=== PATIENT | male | born 2000 | race African-American/Black ===

== ENCOUNTER 2023-02-17 12:05 | Emergency (ER) | payer BC, SELFPAY ==
[2023-02-17 12:14] VITALS: BP 132/84; PULSE 86; RESP 16; TEMP 37.1; O2SAT 98; BMI 22.6
--- NOTE | 2023-02-17 12:29 | CRLHL7_ITS ---
For Patients: As a result of the Cures Act, medical imaging exams and procedure reports are released immediately into your electronic medical record. You may view this report before your referring provider. If you have questions, please contact your health care provider. INDICATION: COUGH TECHNIQUE: Chest 1 view COMPARISON: None FINDINGS: Cardiovascular and mediastinum: Heart size and vasculature are normal in caliber and appearance. Lungs and pleural spaces: Lungs are clear. No sign of infiltrate or mass. No sign of pleural effusion. No pneumothorax. Bones and soft tissues: No significant findings. IMPRESSION: No acute findings. Dictated by Gurmeet Barrera MD @ 02/17/2023 12:51:37 PM (Electronically Signed)
--- NOTE | 2023-02-17 12:31 | ED.GENADULT ---
HPI - General Adult General Chief complaint: Fever Stated complaint: high temp, feels hot Time Seen by Provider: 02/17/23 12:06 History of Present Illness HPI narrative: Patient is a 23-year-old male who works at [employer], has had a fever for the last couple of days, he has had a cough productive of yellow-green sputum. He has no history of bronchospasm or asthma. No history of lung issues. He is on sertraline as only meds at home. He is generally quite healthy. He reports occasional fever and chills but took judy ibuprofen this morning his temperature is normal. He is not hypoxic with a 98% O2 sat. Related Data Home Medications Medication Instructions Recorded Confirmed sertraline .ROUTE 02/17/23 Allergies Allergy/AdvReac Type Severity Reaction Status Date / Time No Known Drug Allergies Allergy Verified 02/17/23 12:17 Review of Systems Status of ROS: Reports: 6 or more systems reviewed and unremarkable except as noted in History and below Exam Narrative: Exam Narrative: Objective: Vital signs unremarkable, O2 sat 90% on room air HEENT is unremarkable throat clear neck is supple chest is clear no rales or wheezing heart rhythm regular heart murmur extremities are no edema neurologic nonfocal Const: Vital Signs, click to edit/add: Vital Signs - 24 hr 02/17/23 12:14 Temperature 98.8 F Pulse Rate [Pulse Oximeter] 86 Respiratory Rate 16 Blood Pressure [Ri ght Upper Arm] 132/84 Pulse Oximetry 98 Oxygen Delivery Me thod Room Air Course Vital Signs Vital signs: Initial Vital Signs Temperature 98.8 F 02/17/23 12:14 Temperature Source Temporal Artery Scan 02/17/23 12:14 Pulse Rate 86 02/17/23 12:14 Respiratory Rate 16 02/17/23 12:14 Blood Pressure 132/84 02/17/23 12:14 Blood Pressure Mean 100 02/17/23 12:14 Pulse Oximetry 98 02/17/23 12:14 Oxygen Delivery Method Room Air 02/17/23 12:14 Vital Signs Temperature 98.8 F 02/17/23 12:14 Pulse Rate 86 02/17/23 12:14 Respiratory Rate 16 02/17/23 12:14 Blood Pressure 132/84 02/17/23 12:14 Pulse Oximetry 98 02/17/23 12:14 Oxygen Delivery Method Room Air 02/17/23 12:14 Temperature 98.8 F 02/17/23 12:14 Pulse Rate 86 02/17/23 12:14 Respiratory Rate 16 02/17/23 12:14 Blood Pressure 132/84 02/17/23 12:14 Pulse Oximetry 98 02/17/23 12:14 Oxygen Delivery Method Room Air 02/17/23 12:14 Medical Decision Making MDM Narrative Medical decision making narrative: 23-year-old male with a history of fever he reports up to 105 this morning. He is afebrile now and appears clinically nontoxic. I think could be appropriate to get a strep test, COVID/influenza, and because of his fever would get a chest x-ray he has had a cough as well. If x-ray is negative we can: Back with the results of the labs, off work today and tomorrow and light activity. Follow up with primary care in 2-3 days Addendum: Patient's chest x-ray is negative, strep and COVID pending. We will call him back with the results of the test, light activity, fluids, Tylenol, off work for couple of days and return to primary care if problems or concerns, return to ED sooner for worsening. Lab Data Labs: Lab Results 02/17/23 Range/Units 12:22 SARS-CoV-2 (PCR) Negative SARS-CoV-2 (Negative) Influenza Type A (PCR) Negative PCR FLU A (Negative) Influenza Type B (PCR) Negative PCR FLU B (Negative) RSV (PCR) Negative PCR RSV (Negative) Group A Strep DNA NOT DETECTED (Not Detectd) Discharge Plan Discharge Clinical Impression: Fever, Cough Patient Disposition: Home, Self-Care Condition: Stable Additional Instructions: Rest, light activity, off work for 2 days, we will call back with the results that are pending. Return to see her primary care doctor in 2-3 days, return to ED sooner problems or concerns. Activity Level: Light activity Discharge Diet: Regular Prescriptions: No Action sertraline .ROUTE Stand Alone Forms: [employer] Info Instructions
[2023-02-17 13:24] LABS: PCR FLU A Negative PCR FLU A (Negative); PCR FLU B Negative PCR FLU B (Negative); PCR RSV Negative PCR RSV (Negative)
[2023-02-17 13:27] LABS: SARS PCR* Negative SARS-CoV-2 (Negative); Strep A DNA Probe* NOT DETECTED (Not Detectd)
--- NOTE | 2023-02-17 13:52 | ED.NURSE ---
Attempted to call patient with negative result, phone number did not go through. Called patient's listed contact and mother and gave verbal negative results on swabs. She states she will contact patient with results.
== END 2023-02-17 12:57 | disposition home or self-care (01) ==
PROVIDERS: Emergency Provider Family Medicine
DX: Z20.822 Contact with and (suspected) exposure to COVID-19 (principal); R50.9 Fever, unspecified; R05.9 Cough, unspecified
CPT/HCPCS: 71045; 87631; 87651; 99283; 99284

== ENCOUNTER 2023-08-10 13:18 | Emergency (ER) | payer BC, SELFPAY ==
[2023-08-10 13:36] VITALS: BP 145/94; PULSE 79; RESP 16; TEMP 37.6; O2SAT 100; BMI 25.1
--- NOTE | 2023-08-10 13:49 | ED_ITS ---
HPI - Animal Bite General Time Seen by Provider: 13:49 Date Seen: 08/10/23 Chief Complaint: Animal Bite Stated Complaint: Attacked by dog, face lacs Time Seen by Provider: 08/10/23 13:45 Source: patient Mode of arrival: ambulatory Limitations: no limitations History of Present Illness HPI narrative: Patient presents to the ED after being attacked by his labrapit dog this afternoon. Patient states he was lying on his bed playing with his dog when his dog bit his face. He now has 4 lacerations to the right side of his face. There is a 1 cm horizontal laceration, possibly abrasion, underneath his lower right eyelid. There is a 2 cm linear vertical laceration to the middle of his right cheek. There is a 5 mm laceration near the right oral commissure. There is also a 2 mm laceration over the right vermilion border. Denies any numbness or tingling. No vision changes. Patient's pain is pretty well controlled at this point in time. Patient states his dog is up-to-date on all of his vaccinations and immunizations. Last tetanus was 11/27/2022. Related Data Previous Rx's Medication Instructions Recorded amoxicillin 875 mg-potassium 1 tab PO BID #10 tabs 08/10/23 clavulanate 125 mg tablet Allergies Allergy/AdvReac Type Severity Reaction Status Date / Time No Known Drug Allergies Allergy Verified 02/17/23 12:17 Review of Systems Const: Denies: fever or chills Eyes: Denies: change in vision, blurry vision, light sensitivity, eye discomfort or eye discharge ENMT: Reports: mouth pain; Denies: swelling of lips/tongue GI: Denies: nausea Neuro: Reports: other (Denies any facial numbness) Exam Narrative: Exam Narrative: General: Healthy-appearing, well-nourished, in no apparent distress. HENMT: Normocephalic, traumatic facial injury secondary to dog bite. There is a 1 cm horizontal abrasion appreciated underneath the right lower eyelid. There is a 2 cm vertical linear laceration on the mid right cheek. Is there is a 5 mm horizontal lack noted on the right oral commissure. There is a 2 mm lack on the right upper vermilion border. No oral lesions. Moist mucous membranes. No immediate swelling noted. Neck: Full range of motion. Atraumatic with no abrasions or lacerations. Supple, no lymphadenopathy. Eye: PERRL. EOMs intact bilterally. Conjunctiva normal. Neuro: No focal motor or sensory deficits. A&Ox3. CN II-XII intact. Const: Vital Signs, click to edit/add: Vital Signs - 24 hr 08/10/23 13:36 Temperature 99.7 F H Pulse Rate [Pulse Oximeter] 79 Respiratory Rate 16 Blood Pressure [Ri t Upper Arm] 145/94 H Pulse Oximetry 100 Oxygen Delivery Me thod Room Air Eye: Direct Ophthalmoscopy: no photophobia Course Vital Signs Vital signs: Initial Vital Signs Temperature 99.7 F H 08/10/23 13:36 Temperature Source Temporal Artery Scan 08/10/23 13:36 Pulse Rate 79 08/10/23 13:36 Respiratory Rate 16 08/10/23 13:36 Blood Pressure 145/94 H 08/10/23 13:36 Blood Pressure Mean 111 H 08/10/23 13:36 Blood Pressure Position Sitting 08/10/23 13:36 Pulse Oximetry 100 08/10/23 13:36 Oxygen Delivery Method Room Air 08/10/23 13:36 Vital Signs Temperature 99.7 F H 08/10/23 13:36 Pulse Rate 79 08/10/23 13:36 Respiratory Rate 16 08/10/23 13:36 Blood Pressure 145/94 H 08/10/23 13:36 Pulse Oximetry 100 08/10/23 13:36 Oxygen Delivery Method Room Air 08/10/23 13:36 Temperature 99.7 F H 08/10/23 13:36 Pulse Rate 79 08/10/23 13:36 Respiratory Rate 16 08/10/23 13:36 Blood Pressure 145/94 H 08/10/23 13:36 Pulse Oximetry 100 08/10/23 13:36 Oxygen Delivery Method Room Air 08/10/23 13:36 MDM - Animal Bite MDM Narrative Medical decision making narrative: Patient is a pleasant 22-year-old male who presents this afternoon after being attacked by his labpit dog. The dog is up-to-date on all of its immunizations, including his rabies shot. Patient's last tetanus was 11/27/2022. On exam, patient is in no acute distress, but is mildly hypertensive with a blood pressure 145/94. All other vital signs are stable. No focal motor or sensory deficits noted. He sustained 4 lacerations to the right side of his face. The wounds were irrigated with 2 rounds of 500 mL of normal saline. 4 mL total of 1% lidocaine with epi was used to anesthetize. There is one 1 cm abrasion noted under his right lower eyelid that I believe will close and heal well on its own. There is a 2 cm vertical linear laceration on the right mid cheek that was closed with 4 simple interrupted sutures. There was a 5 mm horizontal lack sustained to the right oral commissure that was closed with 3 simple interrupted sutures. There was one 2 mm black on the right upper vermilion border that was closed with 1 simple suture. Ethilon was used for all the sutures placed. Patient will return in 5-7 days to have the suture removed. Will treat patient with a course of Augmentin for 5 days. Patient tolerated the procedure well. Return precautions advised. All questions answered. Patient understands and is in agreement. Differential Diagnosis Differential diagnosis: Likely bite by animal and dog bite Medical Records Attestation: I reviewed the patient's medical records. Discharge Plan Discharge Clinical Impression: Dog bite Patient Disposition: Home, Self-Care Condition: Improved Additional Instructions: Take medication as prescribed. Follow up with urgent care or clinic for suture removal in 5-7 days. Activity Level: No Restrictions Discharge Diet: Regular Prescriptions: New amoxicillin-pot clavulanate 875-125 mg tablet 1 tab PO BID Qty: 10 0RF Follow Up/Referrals: Provider,Not a Local [Primary Care Provider] - Stand Alone Forms: [employer] Info Instructions
--- NOTE | 2023-08-10 13:50 | ED.NURSE ---
called PD to report dog bite, they will send an officer here.
== END 2023-08-10 15:56 | disposition home or self-care (01) ==
PROVIDERS: Emergency Provider Emergency Medicine Emergency Medical Services
DX: S01.111A Laceration without foreign body of right eyelid and periocular area, initial encounter (principal); S01.511A Laceration without foreign body of lip, initial encounter; S01.411A Laceration without foreign body of right cheek and temporomandibular area, initial encounter; W54.0XXA Bitten by dog, initial encounter
CPT/HCPCS: 12013; 99283; 99284

== ENCOUNTER 2023-08-13 09:57 | Emergency (ER) | payer BC, SELFPAY ==
[2023-08-13 10:14] VITALS: BP 112/73; PULSE 72; RESP 14; TEMP 37.2; O2SAT 98; BMI 24.4
--- NOTE | 2023-08-13 11:13 | ED.GENADULT ---
HPI - General Adult General Time Seen by Provider: 11:14 Date Seen: 08/13/23 Chief complaint: Laceration/Wound Stated complaint: Possible infection around face lacs Time Seen by Provider: 08/13/23 10:59 Source: patient and family (significant other) Mode of arrival: ambulatory Limitations: no limitations History of Present Illness HPI narrative: 22-year-old male who presents today for wound check. He had a dog bite in his face 3 days ago, this was sutured, patient is on antibiotics. Noted some clear yellow drainage today and so came to the emergency department. Pain and swelling are improving. No fevers. Related Data Previous Rx's Medication Instructions Recorded amoxicillin 875 mg-potassium 1 tab PO BID #10 tabs 08/10/23 clavulanate 125 mg tablet Allergies Allergy/AdvReac Type Severity Reaction Status Date / Time No Known Drug Allergies Allergy Verified 08/13/23 10:14 Exam Narrative: Exam Narrative: General: well nourished , NAD Head: Atraumatic and normocephalic ENT: External ears and external nose are normal Eyes: Conjunctiva clear, pupils are equal reactive, external ocular motions are intact Neck: Full spontaneous range of motion of the neck Lungs: No respiratory distress Musculoskeletal: No tenderness or deformity Neurologic: No gross focal neurologic deficits Skin: Laceration of the right zygomatic arch with sutures in place, no drainage, no underlying flocculence, no redness or warmth. Open wound at the corner of the right lip without surrounding erythema or drainage. Small laceration just under the right eye clean and dry with no erythema or discharge Psych: Mood and affect are appropriate Const: Vital Signs, click to edit/add: Vital Signs - 24 hr 08/13/23 10:14 Temperature 99.0 F Pulse Rate [Pulse Oximeter] 72 Respiratory Rate 14 Blood Pressure [Ri ght Upper Arm] 112/73 Pulse Oximetry 98 Oxygen Delivery Me thod Room Air Course Course ED Course: Patient presents today for wound check after dog bite a couple of days ago with sutured wounds. On exam, the wounds all look clean with no erythema, induration, tenderness, or warmth to suggest cellulitis. Patient describes clear yellow drainage it does not sound like pus and none of the wounds appear to be clear infected. Continue antibiotics, sutures out next week as previously recommended. Vital Signs Vital signs: Initial Vital Signs Temperature 99.0 F 08/13/23 10:14 Temperature Source Temporal Artery Scan 08/13/23 10:14 Pulse Rate 72 08/13/23 10:14 Pulse Rhythm Regular 08/13/23 10:14 Respiratory Rate 14 08/13/23 10:14 Blood Pressure 112/73 08/13/23 10:14 Blood Pressure Mean 86 08/13/23 10:14 Blood Pressure Position Sitting 08/13/23 10:14 Pulse Oximetry 98 08/13/23 10:14 Oxygen Delivery Method Room Air 08/13/23 10:14 Vital Signs Temperature 99.0 F 08/13/23 10:14 Pulse Rate 72 08/13/23 10:14 Respiratory Rate 14 08/13/23 10:14 Blood Pressure 112/73 08/13/23 10:14 Pulse Oximetry 98 08/13/23 10:14 Oxygen Delivery Method Room Air 08/13/23 10:14 Temperature 99.0 F 08/13/23 10:14 Pulse Rate 72 08/13/23 10:14 Respiratory Rate 14 08/13/23 10:14 Blood Pressure 112/73 08/13/23 10:14 Pulse Oximetry 98 08/13/23 10:14 Oxygen Delivery Method Room Air 08/13/23 10:14 Discharge Plan Discharge Clinical Impression: Encounter for wound re-check Patient Disposition: Home, Self-Care Condition: Stable Instructions: Care For Your Stitches (DC) Additional Instructions: Return to have sutures removed as previously recommended Activity Level: No Restrictions Discharge Diet: Regular Prescriptions: No Action amoxicillin-pot clavulanate 875-125 mg tablet 1 tab PO BID Qty: 10 0RF Follow Up/Referrals: Provider,Not a Local [Primary Care Provider] - Stand Alone Forms: [employer] Info Instructions
[2023-08-13 11:25] VITALS: BP 112/73; PULSE 72; RESP 14; TEMP 37.2
== END 2023-08-13 11:26 | disposition home or self-care (01) ==
LOC: ED 11:21
PROVIDERS: Emergency Provider Family Medicine
DX: S01.85XA Open bite of other part of head, initial encounter (principal); W54.0XXA Bitten by dog, initial encounter
CPT/HCPCS: 99282; 99283

== ENCOUNTER 2023-08-19 14:12 | Emergency (ER) | payer BC, SELFPAY ==
[2023-08-19 14:23] VITALS: PULSE 82; RESP 16; TEMP 37.2; O2SAT 99; BMI 25.1
--- NOTE | 2023-08-19 14:37 | ED.NURSE ---
Stitches removed without complication on left side of face and along lip.
--- NOTE | 2023-08-19 14:44 | ED_ITS ---
HPI - General Adult General Date Seen: 08/19/23 Chief complaint: Unspecified Complaint, Adult Stated complaint: Needs facial stitches removed Time Seen by Provider: 08/19/23 14:39 History of Present Illness HPI narrative: This is a 22-year-old generally healthy male who returns to the ER today for suture removal. He was seen in the ER on 08/10 for dog bite wounds to his face and lip that were inflicted by his own dog. Wounds were repaired he was put on prophylactic antibiotics. He had a follow-up visit on 08/13 for wound check and was doing well. Now that his stitches have been in for a week, he return for suture removal. He has no concerns. No ongoing redness from his cuts. Related Data Allergies Allergy/AdvReac Type Severity Reaction Status Date / Time No Known Drug Allergies Allergy Verified 08/13/23 10:14 [facility] Social History Smoking Status: Current every day smoker How often do you have a drink containing alcohol: never AUDIT-C Alcohol total score: 0 Non-prescribed substance use: denies use Exam Narrative: Exam Narrative: Constitutional: Appears well-developed and well-nourished. Alert. Conversant. Non toxic. HENT: He has healing wounds on his right cheek and adjacent to the right corner of his mouth. No surrounding erythema, purulent drainage, wound dehiscence. Nose: Nose normal. Mouth/Throat: Oral mucosa is clear and moist. no trismus. Pharynx normal. Tonsi ls symmetric. Eyes: Conjunctivae normal. EOM normal. Pupils equal, round, and reactive to light. No scleral icterus. Neck: Normal range of motion. Neck supple. No tracheal deviation present. Musculoskeletal: RUE: Normal range of motion. No tenderness. No deformity LUE: Normal range of motion. No tenderness. No deformity RLE: Normal range of motion. No edema. No tenderness. No deformity LLE: Normal range of motion. No edema. No tenderness. No deformity Neurological: Alert and oriented to person, place, and time. Normal strength. CN II-VII intact. No sensory deficit. GCS eye subscore is 4. GCS verbal subscore is 5. GCS motor subscore is 6. Normal coordination Skin: Skin is warm and dry. No rash noted. No pallor. Normal capillary refill. Psychiatric: Normal mood. Normal affect. Const: Vital Signs, click to edit/add: Vital Signs - 24 hr 08/19/23 14:23 Temperature 98.9 F Pulse Rate [Pulse Oximeter] 82 Respiratory Rate 16 Pulse Oximetry 99 Oxygen Delivery Me thod Room Air Course Vital Signs Vital signs: Initial Vital Signs Temperature 98.9 F 08/19/23 14:23 Temperature Source Temporal Artery Scan 08/19/23 14:23 Pulse Rate 82 08/19/23 14:23 Pulse Rhythm Regular 08/19/23 14:23 Respiratory Rate 16 08/19/23 14:23 Pulse Oximetry 99 08/19/23 14:23 Oxygen Delivery Method Room Air 08/19/23 14:23 Vital Signs Temperature 98.9 F 08/19/23 14:23 Pulse Rate 82 08/19/23 14:23 Respiratory Rate 16 08/19/23 14:23 Pulse Oximetry 99 08/19/23 14:23 Oxygen Delivery Method Room Air 08/19/23 14:23 Temperature 98.9 F 08/19/23 14:23 Pulse Rate 82 08/19/23 14:23 Respiratory Rate 16 08/19/23 14:23 Pulse Oximetry 99 08/19/23 14:23 Oxygen Delivery Method Room Air 08/19/23 14:23 Medical Decision Making MDM Narrative Medical decision making narrative: 22-year-old healthy man returns to the ER on day 9. After suturing wounds on his face that suffered when he was bit on his face by his dog. Sutures had already been removed by the triage nurse. I evaluated the wounds. They appear to be healing appropriately. No signs of infection. Discussed wound care, avoidance of sun exposure, antibiotic ointment, and expected course of healing with the patient. He verbalizes understanding. He is eager for discharge. Questions answered. Precautions for return to the ER reviewed. Discharge Plan Discharge Clinical Impression: Encounter for removal of sutures Patient Disposition: Home, Self-Care Condition: Stable Instructions: Stitches Removal (ED) Additional Instructions: Please return to the ER or see her doctor if you have any concerns especially redness, swelling, pus draining from your wounds, or if you have any other problem spent Follow Up/Referrals: Provider,Not a Local [Primary Care Provider] - Stand Alone Forms: [email or web address] Info Instructions
== END 2023-08-19 14:49 | disposition home or self-care (01) ==
LOC: ED 14:47
PROVIDERS: Emergency Provider Emergency Medicine
DX: Z48.02 Encounter for removal of sutures (principal)
CPT/HCPCS: 95992; 99281